=== PATIENT | male | born 1990 | race Caucasian/White ===

== ENCOUNTER 2016-11-30 15:27 | Emergency (ER) | payer OTHER ==
[2016-11-30 18:25] LABS: HEMOGLOBIN 13.3 gm/dl (14.0-17.5); RED BLOOD COUNT 4.13 M/UL (4.20-5.50)
[2016-11-30 18:54] LABS: BUN/CREATININE RATIO 19 (0-10)
== END 2016-11-30 20:30 | disposition home or self-care (01) ==
LOC: ER1 15:27
PROVIDERS: Emergency Medicine
DX: R10.9 Unspecified abdominal pain (principal); R11.2 Nausea with vomiting, unspecified; R19.7 Diarrhea, unspecified; Z88.6 Allergy status to analgesic agent
CPT/HCPCS: 36415; 74022; 80053; 81001; 83690; 85025; 87086; 96374; 99284; J2405; J7030